=== PATIENT | female | born 1960 | race Caucasian/White ===

== ENCOUNTER → 2017-05-08 | Outpatient (CLI) | payer OTHER ==
[2016-04-04 22:23] VITALS: BP 112/60
[2017-05-08 11:09] LABS: BASOPHILS # (AUTO) 0.1 X10^3/uL (0.0-0.1); BASOPHILS % (AUTO) 0.9 % (0.2-1.0); EOSINOPHILS # (AUTO) 0.2 x10^3/uL (0.0-0.2); EOSINOPHILS % (AUTO) 2.8 % (0.9-2.9); HEMATOCRIT 46.2 % (36.0-47.0); HEMOGLOBIN 15.9 g/dL (12.0-16.0); LYMPHOCYTES # (AUTO) 1.8 X10^3/uL (1.3-2.9); LYMPHOCYTES % (AUTO) 24.3 % (21.0-51.0); MEAN CORPUSCULAR HEMOGLOBIN 31.5 pg (27.0-34.0); MEAN CORPUSCULAR HGB CONC 34.4 g/dL (33.0-35.0); MEAN CORPUSCULAR VOLUME 91.6 fL (80.0-100.0); MONOCYTES # (AUTO) 0.6 x10^3/uL (0.3-0.8); NEUTROPHILS # (AUTO) 4.6 x10^3/uL (2.2-4.8); PLATELET COUNT 186 X10^3/uL (150.0-450.0); RED BLOOD COUNT 5.04 X10^6/uL (3.5-5.4); RED CELL DISTRIBUTION WIDTH 13.8 % (11.6-16.5); WHITE BLOOD COUNT 7.2 X10^3/uL (3.6-10.0)
[2017-05-08 11:19] LABS: BILIRUBIN,URINE NEGATIVE (NEGATIVE); BLOOD/HEMOGLOBIN,URINE NEGATIVE (NEGATIVE); GLUCOSE, URINE NEGATIVE (NEGATIVE); KETONES,URINE NEGATIVE (NEGATIVE); LEUKOCYTE ESTERASE ,URINE 1+ (NEGATIVE); NITRITES,URINE NEGATIVE (NEGATIVE); PROTEIN,URINE NEGATIVE (NEGATIVE); UROBILINOGEN,URINE NORMAL (NORMAL)
[2017-05-08 11:33] LABS: APPEARANCE,URINE CLEAR (CLEAR); COLOR,URINE YELLOW (YELLOW); RBC,URINE R /HPF (NEGATIVE)
[2017-05-08 11:34] LABS: AMORPHOUS SEDIMENT,UR TRACE /HPF (NEGATIVE); BACTERIA,URINE NEGATIVE /HPF (NEGATIVE); RENAL EPITHELIAL CELLS,URINE RARE /HPF (NEGATIVE); SQUAMOUS EPITHELIAL CELL,UR FEW /HPF (NEGATIVE)
[2017-05-08 11:50] LABS: ERYTHROCYTE SEDIMENTATION RATE 18 MM/HOUR (0-20)
== END ==
LOC: LAB 10:19
DX: M79.609 Pain in unspecified limb (principal)
CPT/HCPCS: 36415; 81001; 85025; 85610; 85652

== ENCOUNTER 2025-03-14 19:23 | Observation (INO) ==
[2025-03-14 20:13] LABS: MEAN PLATELET VOLUME 8.0 fL (7.4-11.0); RED CELL DISTRIBUTION WIDTH 16.2 % (11.6-16.5)
[2025-03-14 20:15] LABS: BLOOD/HEMOGLOBIN,URINE 1+ (NEGATIVE); LEUKOCYTE ESTERASE ,URINE NEGATIVE (NEGATIVE); NITRITES,URINE NEGATIVE (NEGATIVE)
[2025-03-14 20:26] LABS: COR NA(FOR HYPERGLY) 135 mmol/L (136-145); CREATININE 1.95 mg/dL (0.55-1.02); eGFR NON BLACK RACES 27 (>60)
[2025-03-14 20:30] LABS: APPEARANCE,URINE CLEAR (CLEAR)
[2025-03-14 20:31] LABS: SQUAMOUS EPITHELIAL CELL,UR FEW /HPF (NEGATIVE)
[2025-03-14] MEDS ORDERED: NS 1,000 ML IV 1,000 ML ONE (20:51)
[2025-03-14] MEDS: NS 1,000 ML IV 1,000 ML IV ONE ×2 (20:52→22:12)
--- NOTE | 2025-03-14 22:06 | CT ---
EXAM: CT ABDOMEN AND PELVIS WITH INTRAVENOUS CONTRAST HISTORY: Weakness. Decreased intake. Nausea. Diarrhea. Severe back pain times approximately 5 days. TECHNIQUE: Spiral axial CT images are obtained through the abdomen and pelvis without the administration of oral contrast and with administration of intravenous contrast. Additional coronal and sagittal reformatted images are reconstructed. COMPARISON: None available. FINDINGS: BILIARY SYSTEM: There is cholelithiasis, consistent with sequela of chronic cholecystitis. Dilated gallbladder with questionable gallbladder wall thickening; nonspecific finding which may represent sequela of NPO status, but cannot rule out acute cholecystitis in the appropriate clinical setting. Consider follow-up evaluation with HIDA scan to rule out cystic duct obstruction and acute cholecystitis as clinically warranted. VASCULAR: There is severe aortoiliac atherosclerotic disease, without aneurysm formation or dissection. There is severe atherosclerotic calcified mural plaque seen at the celiac axis, SMA, and bilateral renal artery origins, with suggestion of potentially hemodynamically significant severe luminal stenosis at the celiac axis, SMA, and renal artery origins. Sagittal image [id number] clinical correlation is advised. GASTROINTESTINAL TRACT: There is an approximately 1.4 cm transverse by 1.1 cm AP by 1.1 cm CC hypodense mass within the second portion of the duodenal sweep consistent with an intraluminal lipoma. Axial image 38; coronal image 28. There is colonic diverticulosis, especially severe in the sigmoid region, without CT evidence for acute diverticulitis. No evidence for pneumatosis intestinalis, bowel herniation, bowel obstruction, appendicitis or colitis. GENITOURINARY SYSTEM: The kidneys are unremarkable. There is no ureteral calculus or stigmata of obstructive uropathy. The urinary bladder is grossly unremarkable for a non-dedicated exam. REPRODUCTIVE SYSTEM: The uterus and adnexa appear grossly unremarkable for a CT scan. Consider follow-up dedicated imaging as clinically warranted. CT ABDOMEN: The liver, spleen, pancreas, adrenal glands, and inferior vena cava are within normal limits for a CT scan. There is no intra-abdominal or retroperitoneal lymphadenopathy, free fluid, or free air seen. No abdominal herniation is noted. CT PELVIS: No pelvic sidewall or inguinal lymphadenopathy is seen. No inguinal herniation is noted. No free fluid or free air is seen. BONES AND JOINTS: Mild multilevel DDD is seen in the distal thoracic and lumbar spine. L4/5: Status post discectomy/laminectomy and posterior spinal fusion with pedicle screws and stabilization rods in situ. The visualized bony structures are otherwise within normal limits. LUNG BASES: There are mild patchy groundglass parenchymal infiltrates in the posterior lateral right lower lobe (partially imaged) which may represent acute bronchopneumonia in the appropriate clinical setting. The lung bases are otherwise clear. IMPRESSION: 1. Cholelithiasis, consistent with sequela of chronic cholecystitis. 2. Dilated gallbladder with questionable gallbladder wall thickening; nonspecific finding which may represent sequela of NPO status, but cannot rule out acute cholecystitis in the appropriate clinical setting. Consider follow-up evaluation with HIDA scan to rule out cystic duct obstruction and acute cholecystitis as clinically warranted. 3. Severe aortoiliac atherosclerotic disease, without aneurysm formation or dissection. 4. Severe atherosclerotic calcified mural plaque seen at the celiac axis, SMA, and bilateral renal artery origins, with suggestion of potentially hemodynamically significant severe luminal stenosis at the celiac axis, SMA, and renal artery origins. Sagittal image [id number] clinical correlation is advised. 5. Approximately 1.4 cm transverse by 1.1 cm AP by 1.1 cm CC hypodense mass within the second portion of the duodenal sweep consistent with an intraluminal lipoma. Axial image 38; coronal image 28. 6. Colonic diverticulosis, especially severe in the sigmoid region, without CT evidence for acute diverticulitis. 7. No evidence for pneumatosis intestinalis, bowel herniation, bowel obstruction, appendicitis or colitis. 8. No evidence for pyelonephritis, renal stone disease or obstructive uropathy. 9. Colonic diverticulosis, especially severe in the sigmoid region, without CT evidence for acute diverticulitis. 10. No evidence for pneumatosis intestinalis, bowel herniation, bowel obstruction, appendicitis or colitis. 11. No free fluid, free air, mass lesions, or lymphadenopathy seen. 12. Mild patchy groundglass parenchymal infiltrates in the posterior lateral right lower lobe (partially imaged) which may represent acute bronchopneumonia in the appropriate clinical setting. THIS IS AN ELECTRONICALLY VERIFIED FINAL REPORT 03/14/2025 10:03 PM - Electronically signed by Nj Schofield MD
[2025-03-14] MEDS ORDERED: ZOFRAN INJ 4 MG VIAL ONE (22:12)
[2025-03-14] MEDS: ZOFRAN INJ 4 MG VIAL IVP ONE (22:14)
--- NOTE | 2025-03-14 22:52 | DR.NAUSEAF ---
HPI Time Seen Time Seen by Provider: 03/14/25 20:03 Primary Care Physician Primary Care Physician: ALDEN HPI Comment HPI Comment: Patient states she has had some weakness, nausea, diarrhea, fever that started approximately 5 days ago. Patient states the fever stopped about 2 days ago but still feels very weak. Complains of ongoing cough. Complaints Chief Complaint:: PATIENT C/O WEAKNESS, DECREASED INTAKE, NAUSEA, DIARRHEA. SEVERE BACK PAIN THAT HAS BEEN GOING ON FOR APPROX 5 DAYS COVID-19 Coronavirus risk:travel/contact w/high risk person: No Has patient experienced Coronavirus symptoms: Yes Coronavirus symptoms experienced: Shortness of Breath Source History Provided: Patient Mode of Arrival Mode of Arrival: Wheelchair Timing Onset of Chief Complaint: 03/09/25 PMH PMH Past Medical History: Yes Past Medical History: Arthritis, COPD, Depression, GERD and Hypertension Past Medical History Comment: FIBROMIALGIA Past Surgical History: Yes Surgical History: Angioplasty/Stents and Ortho Surgery Family History History of Family Medical Conditions: No Social History Does patient currently use any type of tobacco product: Yes Have you used tobacco products in the last 12 months: Yes Type of Tobacco Use: Cigarettes Does any household member use tobacco: Yes Alcohol Use: None Do you use any recreational Drugs:: No Lives With: Alone Lives Where: Home Travel Risk Coronavirus risk:travel/contact w/high risk person: No Has patient experienced Coronavirus symptoms: Yes Coronavirus symptoms experienced: Shortness of Breath Infectious screening In the last 2 months have you had wt loss of >10#?: NO Have you had fever, night sweats or hemotysis?: No Have you traveled outside the country in the last 6 months?: No Isolation: Standard ROS Review of Systems Constitutional: See HPI and Weakness Eyes: No Symptoms Reported ENTM: No Symptoms Reported Respiratoy: See HPI; negative Short of Breath or Wheezing Cardiovascular: No Symptoms Reported; negative Chest Pain, Edema, Palpitations or Syncope Gastrointestinal/Abdominal: See HPI Genitourinary: No Symptoms Reported Neurological: No Symptoms Reported Musculoskeletal: No Symptoms Reported Integumentary: No Symptoms Reported Hematologic/Lymphatic: No Symptoms Reported Endocrine: No Symptoms Reported Psychiatric: No Symptoms Reported All Other Systems: Reviewed and Negative PE Vital Signs Vitals: Vital Signs Temperature 97.8 F Pulse Rate 56 Pulse Rate 52 Pulse Rate 52 Pulse Rate 91 Pulse Rate 61 Pulse Rate 62 Pulse Rate 65 Pulse Rate 64 Pulse Rate 67 Pulse Rate 71 Pulse Rate 74 Pulse Rate 95 Respiratory Rate 14 Respiratory Rate 12 Respiratory Rate 23 Respiratory Rate 20 Respiratory Rate 16 Respiratory Rate 22 Blood Pressure 155/67 Blood Pressure 149/67 Blood Pressure 149/68 Blood Pressure 149/68 Blood Pressure 151/67 Blood Pressure 139/73 Blood Pressure 151/61 O2 Sat by Pulse Oximetry 98 O2 Sat by Pulse Oximetry 94 O2 Sat by Pulse Oximetry 100 O2 Sat by Pulse Oximetry 91 O2 Sat by Pulse Oximetry 97 O2 Sat by Pulse Oximetry 93 O2 Sat by Pulse Oximetry 94 O2 Sat by Pulse Oximetry 96 O2 Sat by Pulse Oximetry 95 O2 Sat by Pulse Oximetry 96 O2 Sat by Pulse Oximetry 98 O2 Sat by Pulse Oximetry 99 General Limitations: No Limitations General Appearance: Alert and In No Apparent Distress Head Head Exam: Normal Inspection Eyes Eye exam: Normal Appearance ENT ENT Exam: Normal Exam Neck Neck Exam: Normal Inspection Chest Chest Inspection: Normal Inspection Respiratory Respiratory Exam: Other (Slightly decreased breath sounds on bases bilaterally.); negative Respiratory Distress Cardiovascular Cardiovascular Exam: Regular Rate and Normal Rhythm Abdominal Exam Abdominal Exam: Normal Inspection, Normal Bowel Sounds and Soft; negative Distention, Tenderness, Guarding, Rebound, Rigidity, Organomegaly or Ascites Rectal Rectal Exam: Deferred External Exam: Female: Deferred : Speculum Exam (Female): Deferred : Bimanual Exam (female): Deferred Extremities Extremities Exam: Normal Inspection Back Back Exam: Normal Inspection Neurologic Neurological Exam: Alert and Oriented X3 Psychiatric Psychiatric Exam: Normal Affect and Normal Mood Skin Skin Exam: Warm, Dry, Intact and Normal Color COURSE Treatment Treatment: Discussed results of workup with patient. Patient is COVID-positive, septic with possible cholecystitis as per CT as well as bronchopneumonia. Suspect developing pneumonia secondary to COVID illness. Patient had some improvement with fluids. Antibiotic selection was complicated due to patient stating she had allergies to most antibiotics. Consultation Called: 23:23 Consultation Comments: Discussed case with Dr. Kilpatrick. He is agreeable to admission. [facility] Labs Reviewed 03/14/25 20:00 03/14/25 20:00 Laboratory: WBC 4.7 X10^3/uL (3.6-10.0) 03/14/25 20:00 RBC 4.69 X10^6/uL (3.5-5.4) 03/14/25 20:00 Hgb 15.8 g/dL (12.0-16.0) 03/14/25 20:00 Hct 46.2 % (36.0-47.0) 03/14/25 20:00 MCV 98.6 fL (80.0-100.0) 03/14/25 20:00 MCH 33.7 pg (27.0-34.0) 03/14/25 20:00 MCHC 34.2 g/dL (33.0-35.0) 03/14/25 20:00 RDW 16.2 % (11.6-16.5) 03/14/25 20:00 Plt Count 221 X10^3/uL (150.0-450.0) 03/14/25 20:00 MPV 8.0 fL (7.4-11.0) 03/14/25 20:00 Neut % (Auto) 69.1 % (42.0-75.0) 03/14/25 20:00 Lymph % (Auto) 15.1 % (21.0-51.0) L 03/14/25 20:00 Gillespie % (Auto) 14.1 % (0.0-13.0) H 03/14/25 20:00 Eos % (Auto) 1.0 % (0.9-2.9) 03/14/25 20:00 Baso % (Auto) 0.7 % (0.2-1.0) 03/14/25 20:00 Neut # (Auto) 3.3 x10^3/uL (2.2-4.8) 03/14/25 20:00 Lymph # (Auto) 0.7 X10^3/uL (1.3-2.9) L 03/14/25 20:00 Gillespie # (Auto) 0.7 x10^3/uL (0.3-0.8) 03/14/25 20:00 Eos # (Auto) 0.0 x10^3/uL (0.0-0.2) 03/14/25 20:00 Baso # (Auto) 0.0 X10^3/uL (0.0-0.1) 03/14/25 20:00 Absolute Nucleated RBC 0.1 /100WBC 03/14/25 20:00 Sodium 135 mmol/L (136-145) L 03/14/25 20:00 Corrected Sodium 135 mmol/L (136-145) L 03/14/25 20:00 Potassium 3.7 mmol/L (3.5-5.1) 03/14/25 20:00 Chloride 96 mmol/L (98-107) L 03/14/25 20:00 Carbon Dioxide 23.4 mmol/L (21-32) 03/14/25 20:00 BUN 40 mg/dL (7-18) H 03/14/25 20:00 Creatinine 1.95 mg/dL (0.55-1.02) H 03/14/25 20:00 Est GFR (MDRD) Af Amer 33 (>60) L 03/14/25 20:00 Est GFR (MDRD) Non-Af 27 (>60) L 03/14/25 20:00 Glucose 118 mg/dL (65-99) H 03/14/25 20:00 Lactic Acid 1.8 mmol/L (0.4-2.0) 03/14/25 22:20 Calcium 9.2 mg/dL (8.5-10.1) 03/14/25 20:00 Corrected Calcium TNP 03/14/25 20:00 Total Bilirubin 0.80 mg/dL (0.2-1.0) 03/14/25 20:00 AST 32 Units/L (15-37) 03/14/25 20:00 ALT 29 Units/L (12-78) 03/14/25 20:00 Alkaline Phosphatase 89 Units/L (46-116) 03/14/25 20:00 Creatine Kinase 174 Units/L (26-192) 03/14/25 20:00 Troponin I High Sens 15.2 ng/L (4.0-60.0) 03/14/25 20:00 Total Protein 9.0 g/dL (6.4-8.2) H 03/14/25 20:00 Albumin 3.9 g/dL (3.4-5.0) 03/14/25 20:00 Globulin 5.1 g/dL (2.5-4.5) H 03/14/25 20:00 Albumin/Globulin Ratio 0.8 Ratio (1.1-2.1) L 03/14/25 20:00 Specimen Type Clean catch urine 03/14/25 19:58 Urine Color Dark yellow (YELLOW) 03/14/25 19:58 Urine Appearance Clear (CLEAR) 03/14/25 19:58 Urine pH 5.0 (5.0 - 8.0) 03/14/25 19:58 Ur Specific Union 1.025 (1.000-1.030) 03/14/25 19:58 Urine Protein 2+ (NEGATIVE) 03/14/25 19:58 Urine Glucose (UA) Negative (NEGATIVE) 03/14/25 19:58 Urine Ketones 2+ (NEGATIVE) 03/14/25 19:58 Urine Blood 1+ (NEGATIVE) 03/14/25 19:58 Urine Nitrite Negative (NEGATIVE) 03/14/25 19:58 Urine Bilirubin Negative (NEGATIVE) 03/14/25 19:58 Urine Urobilinogen Normal (NORMAL) 03/14/25 19:58 Ur Leukocyte Esterase Negative (NEGATIVE) 03/14/25 19:58 Urine RBC 3-5 /HPF (0-3) A 03/14/25 19:58 Urine WBC 0-2 /HPF (0-5) 03/14/25 19:58 Ur Squamous Epith Cells Few /HPF (NEGATIVE) 03/14/25 19:58 Amorphous Sediment Trace /HPF (NEGATIVE) 03/14/25 19:58 Urine Bacteria Trace /HPF (NEGATIVE) 03/14/25 19:58 Ur Culture Indicated? No/not indicated 03/14/25 19:58 SARS-CoV-2 (PCR) Positive (NEGATIVE) A 03/14/25 19:58 Influenza Type A (PCR) Negative (NEGATIVE) 03/14/25 19:58 Influenza Type B (PCR) Negative (NEGATIVE) 03/14/25 19:58 RSV (PCR) Negative (NEGATIVE) 03/14/25 19:58 Opioid Opioid Risk Tool Age (Jose box if 16-45): No History of Preadolescent Sexual Abuse: No Total: 0 Total Score Risk Category: Low Risk Copyright: Cuong BOND predicting aberrant behaviors Discharge Plan Diagnosis Discharge Problem: Pneumonia due to COVID-19 virus, Sepsis, Cholecystitis Discharge Plan Patient Disposition: 09 ADMITTED INPATIENT Condition: Stable Prescriptions: No Action methocarbamol 500 mg tablet 500 mg PO BID PRN rabeprazole [AcipHex] 20 mg tablet,delayed release (DR/EC) 20 mg PO BID tizanidine 4 mg tablet 4 mg PO QPM clopidogrel 75 mg tablet 75 mg PO QDAY tramadol 50 mg tablet 50 mg PO BID-TID PRN (Reason: pain) levothyroxine 25 mcg tablet 25 mcg PO QDAY olmesartan [Benicar] 20 mg tablet 20 mg PO QDAY ezetimibe [Zetia] 10 mg tablet 10 mg PO QDAY pregabalin 50 mg capsule 50 mg PO BID Health Concerns: Post Hospitalization: new medications and changes needed to prevent readmission or further decline. Pt educated and given instructions on all concerns. Plan of Treatment: Continue with present treatment and follow up plan. Pt is to keep follow up appointment as instructed and take medications as ordered. Orders to Discharge Patient Discharge Orders: Transfer (Routine); Ordered 03/14/25 Ordered By: Sergio Syed Follow ups/Referrals Follow ups/Referrals: GUERLINE RUANO [Primary Care Provider] - 3 days Instructions Stand Alone Forms: Find Help Web Site, Post Hospital Follow Up Care Print Language: UPPER SORBIAN
[2025-03-14] MEDS: LEVAQUIN PREMIX IV 500 MG 500 MG/100 ML BAG IV ONE (23:33)
[2025-03-14] MEDS ORDERED: TYLENOL 325 MG TAB PO PRN (23:59)
[2025-03-14] MEDS ORDERED: CONSULT PHARMACY - POTASSIUM & MAGNESIUM XX SCH (23:59)
[2025-03-15] MEDS: NS 1,000 ML IV 1,000 ML IV SCH (00:45)
[2025-03-15] MEDS: LEVAQUIN PREMIX IV 750 MG 750 MG/150 ML BAG IV SCH (00:57)
[2025-03-15] MEDS: K-DUR TAB 20 MEQ PO SCH (00:57)
[2025-03-15] MEDS: NORCO 5/325 MG TAB PO PRN (03:41)
[2025-03-15] MEDS: ZOFRAN INJ 4 MG VIAL IVP PRN (05:08)
[2025-03-15 05:55] LABS: MEAN PLATELET VOLUME 8.0 fL (7.4-11.0); RED CELL DISTRIBUTION WIDTH 16.4 % (11.6-16.5)
--- NOTE | 2025-03-15 06:02 | RAD ---
EXAM: CHEST, 1 VIEW HISTORY: sob; COMPARISON: None available. FINDINGS: The trachea is midline. The cardiac silhouette is unremarkable . The lungs are clear without focal infiltrate or effusion. The bony thorax is unremarkable. IMPRESSION: No acute cardiopulmonary disease. THIS IS AN ELECTRONICALLY VERIFIED FINAL REPORT 03/15/2025 5:58 AM - Electronically signed by Edgard Narvaez MD
[2025-03-15 06:04] LABS: COR CA(FOR HYPOALB) 8.9 mg/dL (8.5-10.1); COR NA(FOR HYPERGLY) 137.0 mmol/L (136-145); CREATININE 1.29 mg/dL (0.55-1.02); eGFR NON BLACK RACES 44.0 (>60)
--- NOTE | 2025-03-15 06:20 | RAD ---
EXAMINATION: CHEST, 1 VIEW HISTORY: PNEUMONIA ; COPD, GERD, HTN SX: ANGIO/STENTS, ORTHO . COMPARISON STUDY: Chest x-ray 03/14/2025 TECHNIQUE: Single portable AP view of the chest FINDINGS: Lungs are expanded. Mild cardiac silhouette enlargement. Normal pulmonary vascular pattern. CP angles are sharp. Bones are intact. IMPRESSION: Mild cardiac silhouette enlargement. THIS IS AN ELECTRONICALLY VERIFIED FINAL REPORT 03/15/2025 6:16 AM - Electronically signed by Courtney Setvenson MD
[2025-03-15] MEDS: PULMICORT NEB TX 0.5 MG NEB SCH (08:30)
[2025-03-15] MEDS: DUONEB 0.5 MG/3 MG (3 mL) NEB SCH (08:30)
[2025-03-15] MEDS ORDERED: OLMESARTAN 20 MG PO SCH (09:00)
[2025-03-15] MEDS: LR 1,000 ML IV 1,000 ML IV ONE ×2 (09:41→10:35)
[2025-03-15] MEDS: PHENERGAN INJ 25 MG IM PRN (09:43)
[2025-03-15] MEDS ORDERED: ULTRAM PO PRN (09:57)
[2025-03-15] MEDS ORDERED: ROBAXIN PO PRN (09:57)
[2025-03-15] MEDS ORDERED: VITAMIN A PO SCH (10:00)
[2025-03-15] MEDS ORDERED: PHARMACY CONSULT - IVERMECTIN XX SCH (10:00)
[2025-03-15] MEDS: ASCORBIC ACID INJ MULTI-DOSE VIAL 1,500 MG in NS 100 ML IV 100 ML IV SCH (12:15)
[2025-03-15] MEDS: SYNTHROID 25 mcg TAB PO SCH (12:42)
[2025-03-15] MEDS: ZETIA TAB 10 MG PO SCH (12:42)
[2025-03-15] MEDS: BENICAR PO SCH (12:43)
[2025-03-15] MEDS: ZINC SULFATE PO SCH (12:43)
[2025-03-15] MEDS: VITAMIN D (1.25MG) PO SCH (12:44)
[2025-03-15] MEDS: PROTONIX INJ 40 MG VIAL IVP SCH (12:45)
[2025-03-15] MEDS: BENICAR ONE (12:45)
[2025-03-15] MEDS: THIAMINE HCL INJ IVP SCH (12:45)
[2025-03-15] MEDS: PLAVIX PO SCH (12:46)
[2025-03-15] MEDS: ULTRAM PO PRN (12:52)
[2025-03-15] MEDS: IVERMECTIN PO SCH (16:17)
[2025-03-15] MEDS: NS 100 ML IV 0 ML ONE (18:18)
[2025-03-15] MEDS: NS 100 ML IV 100 ML ONE (21:22)
[2025-03-16] MEDS: NS 100 ML IV 100 ML ONE (09:23)
[2025-03-16] MEDS: BENICAR PO SCH (09:24)
[2025-03-16] MEDS ORDERED: NS 100 ML IV 100 ML ONE (19:08)
[2025-03-16] MEDS: TESSALON PERLES PO PRN (21:15)
[2025-03-16 23:07] VITALS: BMI 33.9
[2025-03-17 06:06] LABS: MEAN PLATELET VOLUME 7.9 fL (7.4-11.0); RED CELL DISTRIBUTION WIDTH 16.0 % (11.6-16.5)
[2025-03-17 06:22] LABS: COR CA(FOR HYPOALB) 9.1 mg/dL (8.5-10.1); CREATININE 1.16 mg/dL (0.55-1.02); eGFR NON BLACK RACES 50 (>60)
[2025-03-17] MEDS ORDERED: CONSULT PHARMACY - POTASSIUM & MAGNESIUM XX SCH (07:00)
[2025-03-17] MEDS ORDERED: MAGNESIUM SULFATE 1 GRAM/100 mL PREMIX 1 G/100 ML BAG IV SCH (07:41)
--- NOTE | 2025-03-17 07:58 | RAD ---
EXAMINATION: CHEST, PA/LAT ADULT HISTORY: PNEUMONIA ; COPD, GERD, HTN SX: ANGIO/STENTS, ORTHO . COMPARISON STUDY: Chest x-ray 03/15/2025 TECHNIQUE: Two views of the chest frontal and lateral projections FINDINGS: Lungs are expanded. Subtle bibasilar opacities. [id number] cardiac silhouette enlargement. Normal pulmonary vascular pattern. Bones appear intact. IMPRESSION: Subtle bibasilar opacities. Cardiac silhouette enlargement. THIS IS AN ELECTRONICALLY VERIFIED FINAL REPORT 03/17/2025 7:54 AM - Electronically signed by Courtney Stevenson MD
[2025-03-17] MEDS ORDERED: NS 1,000 ML IV 1,000 ML with MAGNESIUM SULFATE 50% INJ VIAL 2 G IV SCH (08:00)
[2025-03-17] MEDS ORDERED: NS 1,000 ML IV 1,000 ML with MAGNESIUM SULFATE 50% INJ VIAL 1 G IV SCH (08:00)
[2025-03-17] MEDS: K-DUR TAB 20 MEQ PO SCH (09:00)
[2025-03-17] MEDS: MAGNESIUM SULFATE IV ONE (09:01)
[2025-03-17] MEDS: NS IV ONE (09:01)
[2025-03-17 14:30] VITALS: BP 148/72; PULSE 67; RESP 23; TEMP 97.8; O2SAT 90
[2025-03-18] MEDS ORDERED: K-DUR TAB 20 MEQ PO SCH (09:00)
== END 2025-03-17 15:45 | disposition home or self-care (01) ==
LOC: MED/SURG 19:29 → ER 19:29 → MED/SURG 03-15 00:20
PROVIDERS: ADMIT Obstetrics & Gynecology Obstetrics; ATTEND Obstetrics & Gynecology Obstetrics
DX: A41.89 Other specified sepsis; K57.32 Diverticulitis of large intestine without perforation or abscess without bleeding; R26.89 Other abnormalities of gait and mobility; E83.51 Hypocalcemia; J44.9 Chronic obstructive pulmonary disease, unspecified; I10 Essential (primary) hypertension; K21.9 Gastro-esophageal reflux disease without esophagitis; Z16.29 Resistance to other single specified antibiotic; R73.09 Other abnormal glucose; J12.82 Pneumonia due to coronavirus disease 2019; R53.1 Weakness; M54.89 Other dorsalgia; M19.90 Unspecified osteoarthritis, unspecified site; K63.89 Other specified diseases of intestine; M79.7 Fibromyalgia; U07.1 COVID-19; R06.02 Shortness of breath; E87.1 Hypo-osmolality and hyponatremia; K80.80 Other cholelithiasis without obstruction; B96.1 Klebsiella pneumoniae [K. pneumoniae] as the cause of diseases classified elsewhere; Z29.89 Encounter for other specified prophylactic measures